=== PATIENT | female | born 1975 | race Caucasian/White ===

== ENCOUNTER → 2019-10-22 | Outpatient (CLI) | payer OTHER ==
[~2019-10-22] MED LIST: DEPOPROVERA
--- NOTE | 2019-10-22 12:51 | REP ---
CHEST, TWO VIEWS: There is no evidence of acute infiltrate. No pleural effusion is seen. The heart is normal in size. The mediastinal silhouette is unremarkable. The visualized osseous structures are intact. IMPRESSION: No acute pulmonary disease. Electronically Signed by Viraj Jacob MD 10/22/2019 05:41 P
== END ==
LOC: M LRY 11:38
PROVIDERS: ATTEND Physician Assistant
DX: R07.9 Chest pain, unspecified (principal)

== ENCOUNTER → 2021-05-03 | Outpatient (CLI) | payer OTHER ==
--- NOTE | 2021-05-03 09:18 | REP ---
INDICATION: LT KNEE PAIN. COMPARISON: None. TECHNIQUE: AP and lateral weightbearing along with sunrise view of the left knee FINDINGS: The tibiofemoral joint space appears relatively normal and symmetric as compared with the right knee on frontal radiograph. Lateral and sunrise views demonstrate calcifications at the tendinous insertions on the patella along with interior fraying, posterior sclerosis and patellofemoral joint space narrowing. No acute fracture or dislocation. No obvious effusion. 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 <Electronically signed by Sudarshan Fleming > 05/03/21 [id number]
== END ==
LOC: M SOG 08:46
PROVIDERS: ATTEND Orthopaedic Surgery Adult Reconstructive Orthopaedic Surgery
DX: M25.562 Pain in left knee (principal); M76.52 Patellar tendinitis, left knee; M22.8X2 Other disorders of patella, left knee; M22.2X2 Patellofemoral disorders, left knee

== ENCOUNTER → 2021-07-19 | Outpatient (CLI) | payer BC ==
--- NOTE | 2021-07-19 08:47 | REP ---
INDICATION: PAIN IN LT KNEE. COMPARISON: None. TECHNIQUE: Sagittal spin-echo proton density, T2 STIR and T2 FLASH. Coronal spin-echo proton density and fat suppressed proton density. Axial fat suppressed proton density. FINDINGS: The anterior and posterior horns of the medial meniscus are within normal limits. The anterior and posterior horns of the lateral meniscus are within normal limits. The anterior and posterior cruciate ligaments are intact. The quadriceps and patellar tendons are intact. The medial and lateral collateral ligaments are intact. The medial and lateral patellar retinacula are intact. There is no joint effusion or Garza's cyst. There is mild irregularity of the medial compartmental articular cartilages. The marrow signal is within normal limits. IMPRESSION: Mild chondromalacia. <Electronically signed by Conner Ramos > 07/19/21 [id number]
== END ==
LOC: M RAD 06:36
PROVIDERS: ATTEND Orthopaedic Surgery Adult Reconstructive Orthopaedic Surgery
DX: M94.262 Chondromalacia, left knee (principal); M22.2X2 Patellofemoral disorders, left knee

== ENCOUNTER → 2022-02-22 | Outpatient (CLI) | payer BC | LOC: M LABSMTC 10:41 | PROVIDERS: ATTEND Anesthesiology | DX: Z11.52 Encounter for screening for COVID-19 (principal) ==

== ENCOUNTER 2022-02-27 12:15 | Day surgery (SDC) | payer BC ==
[~2022-02-27] VITALS: Ht 162.6 cm; Wt 88.0 kg
[~2022-02-27 12:15] MED LIST changes: +ACETAMINOPHEN 500 MG TAB PO ONE; +CelecoXIB 400 MG CAP PO ONE; +GABAPENTIN 300 MG CAP PO ONE; +ONDANSETRON 4MG 2ML VIAL IV ONE
[2022-02-27] MEDS ORDERED: fentaNYL 100 MCG/2 ML INJECTION As Ordered ONE (15:41)
[2022-02-27] MEDS ORDERED: MIDAZOLAM INJ 2MG/2ML VIAL (J2250 PER 1MG) As Ordered ONE (15:41)
[2022-02-27] MEDS ORDERED: propofoL 200 MG/20 ML VIAL As Ordered ONE (15:42)
[2022-02-27] MEDS ORDERED: LIDOCAINE 2% INJ 100 MG/5 ML SYRINGE As Ordered ONE (15:42)
[2022-02-27] MEDS ORDERED: BUPIVACAINE/EPIN 0.5% 30 ML VIAL As Ordered ONE (15:47)
[2022-02-27] MEDS ORDERED: EPINEPHrine 1MG/ML INJ 30ML MD-VIAL As Ordered ONE (15:48)
[2022-02-27] MEDS ORDERED: ONDANSETRON 4MG 2ML VIAL As Ordered ONE (16:32)
[2022-02-27] MEDS ORDERED: dexameTHASONE 4 MG/ML 1ML VIAL (J1100 PER 1MG) As Ordered ONE (16:32)
[2022-02-27] MEDS ORDERED: KETOROLAC 60MG 2ML VIAL As Ordered ONE (16:32)
[2022-02-27] MEDS ORDERED: PHENYLephrine 500MCG 5ML (100MCG/ML) SYRINGE As Ordered ONE (16:39)
[2022-02-27] MEDS ORDERED: oxyCODONE 5MG TAB PO PRN (17:25)
[2022-02-27] MEDS ORDERED: ONDANSETRON 4MG 2ML VIAL IV PRN (17:25)
[2022-02-27] MEDS ORDERED: LR 1,000 ML IV SCH (17:25)
[2022-02-27] MEDS: fentaNYL 100 MCG/2 ML INJECTION IV PRN ×4 (17:45→18:01)
[2022-02-27 19:05] VITALS: BP 142/85
== END 2022-02-27 19:08 | disposition home or self-care (01) ==
LOC: M SDC 12:15
PROVIDERS: ATTEND Orthopaedic Surgery Adult Reconstructive Orthopaedic Surgery
DX: M94.262 Chondromalacia, left knee (principal); M67.52 Plica syndrome, left knee; Z91.040 Latex allergy status
CPT/HCPCS: 29879; 81025; J0171; J1100; J1885; J2250; J2370; J2405; J3010

== ENCOUNTER 2022-05-25 13:39 | Emergency (ER) | payer BC ==
[~2022-05-25] VITALS: Ht 162.6 cm; Wt 88.0 kg
[~2022-05-25 13:39] MED LIST changes: -ACETAMINOPHEN 500 MG TAB PO ONE; -CelecoXIB 400 MG CAP PO ONE; -GABAPENTIN 300 MG CAP PO ONE; -ONDANSETRON 4MG 2ML VIAL IV ONE
[2022-05-25] MEDS ORDERED: methylPREDNISolone 1,000 MG, VIAL MATE ADAPTER 1 EACH in NS 250 ML IV ONE (13:55)
[2022-05-25 17:55] LABS: BASO % 0.4 % (0.0-1.0); EOS # 0.1 10^3/uL (0.0-0.5); EOS % 0.9 % (0.0-3.0); HEMATOCRIT 42.6 % (36.0-47.0); HEMOGLOBIN 13.6 g/dl (12.0-15.5); LYMPH # 1.9 10^3/uL (1.5-5.0); LYMPH % 20.6 % (24.0-44.0); MEAN CORPUSCULAR HEMOGLOBIN 27.3 pg (27.0-33.0); MEAN CORPUSCULAR HGB CONC 31.9 g/dl (32.0-36.5); MEAN CORPUSCULAR VOLUME 85.5 fl (80.0-96.0); MONO # 0.2 10^3/uL (0.0-0.8); MONO % 1.7 % (2.0-8.0); NEUTROPHILS # 6.9 10^3/uL (1.5-8.5); NEUTROPHILS % 75.4 % (36.0-66.0); PLATELET COUNT, AUTOMATED 321 10^3/uL (150-450); RED BLOOD COUNT 4.98 10^6/uL (4.00-5.40); WHITE BLOOD COUNT 9.2 10^3/uL (4.0-10.0)
[2022-05-25 18:24] LABS: BLOOD UREA NITROGEN 16 MG/DL (7-18); CALCIUM LEVEL 9.1 MG/DL (8.5-10.1); CARBON DIOXIDE LEVEL 26 MEQ/L (21-32); CHLORIDE LEVEL 109 MEQ/L (98-107); CREATININE FOR GFR 0.78 MG/DL (0.55-1.30); GLOMERULAR FILTRATION RATE > 60.0 (>58); GLUCOSE, FASTING 107 MG/DL (70-100); POTASSIUM SERUM 3.7 MEQ/L (3.5-5.1); SODIUM LEVEL 140 MEQ/L (136-145)
[2022-05-25 18:32] LABS: ERYTHROCYTE SEDIMENTATION RATE 26 mm/hr (0-20)
[2022-05-25 19:44] LABS: HEMOGLOBIN A1c 5.8 %
[2022-05-25 21:01] VITALS: BP 128/62
== END 2022-05-25 21:02 | disposition home or self-care (01) ==
LOC: M ED 13:39
DX: H47.011 Ischemic optic neuropathy, right eye (principal); Z79.890 Hormone replacement therapy; Z91.040 Latex allergy status
CPT/HCPCS: 70540; 70551; 80048; 83036; 85025; 85652; 86140; 96365; 96366; 99284; J2930

== ENCOUNTER 2022-05-26 11:15 | Emergency (ER) | payer BC ==
[~2022-05-26] VITALS: Ht 162.6 cm; Wt 87.8 kg
[2022-05-26 11:17] VITALS: BP 126/82
[2022-05-26] MEDS ORDERED: methylPREDNISolone 1,000 MG, VIAL MATE ADAPTER 1 EACH in NS 250 ML IV ONE (11:40)
== END 2022-05-26 13:02 | disposition home or self-care (01) ==
LOC: M ED 11:15
DX: H47.011 Ischemic optic neuropathy, right eye (principal); Z91.040 Latex allergy status
CPT/HCPCS: 96365; 99283; J2930

== ENCOUNTER 2022-05-27 08:56 | Emergency (ER) | payer BC ==
[~2022-05-27] VITALS: Ht 162.6 cm; Wt 88.4 kg
[2022-05-27] MEDS ORDERED: methylPREDNISolone 1,000 MG, VIAL MATE ADAPTER 1 EACH in NS 250 ML IV ONE (11:05)
[2022-05-27 12:07] VITALS: BP 130/80
== END 2022-05-27 12:35 | disposition home or self-care (01) ==
LOC: M ED 08:56
DX: H47.011 Ischemic optic neuropathy, right eye (principal); J45.909 Unspecified asthma, uncomplicated; Z79.890 Hormone replacement therapy; Z91.040 Latex allergy status
CPT/HCPCS: 96365; 99283; J2930